=== PATIENT | female | born 1995 | race Caucasian/White ===

== ENCOUNTER 2022-11-28 17:45 | Emergency (ER) | payer BC ==
[~2022-11-28] VITALS: Ht 160 cm; Wt 56.7 kg
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
--- NOTE | 2022-11-28 18:25 | NUR ---
URINE SAMPLE COLLECTED AND SENT TO LAB
--- NOTE | 2022-11-28 19:25 | NUR ---
HAND OFF MISTY WOLFE
[2022-11-28 20:25] VITALS: BP 109/60
== END 2022-11-28 20:26 | disposition home or self-care (01) ==
LOC: ER 17:52
DX: S00.03XA Contusion of scalp, initial encounter (principal); W01.198A Fall on same level from slipping, tripping and stumbling with subsequent striking against other object, initial encounter; Y93.89 Activity, other specified; Y92.89 Other specified places as the place of occurrence of the external cause; Y99.8 Other external cause status
CPT/HCPCS: 84703-TC